=== PATIENT | female | born 1970 | race Caucasian/White ===

== ENCOUNTER 2017-02-27 20:36 | Emergency (ER) | payer OTHER ==
[~2017-02-27] VITALS: Ht 160 cm; Wt 87.4 kg
[~2017-02-27 20:36] MED LIST: ADULT LOW DOSE81 M1 PO; ASPIRIN81 M1 PO; COZAAR50 MG PO; FLEXERIL10 MG PO; LIDOCAINE20 MG/1 M5 PO; LOPRESSOR25 MG PO; METOPROL; NAPROSYN500 MG PO; NOHOMEMEDS; NORCO 5/3251 TABLET PO; PLAVIX75 MG PO; PLETAL100 MG PO; ULTRACET1 TABLET PO; Vicodin,Norco 5/325 PO; ZOCOR20 MG PO
[2017-02-27] MEDS ORDERED: KEFLEX500 MG PO (21:37)
[2017-02-27 22:03] VITALS: BP 156/96
== END 2017-02-27 22:04 | disposition home or self-care (01) ==
LOC: EME 20:36
DX: L03.116 Cellulitis of left lower limb (principal); Z72.0 Tobacco use
CPT/HCPCS: 73630; 99281; 99284